=== PATIENT | male | born 1970 | race Caucasian/White ===

== ENCOUNTER 2021-06-19 17:19 | Emergency (ER) | payer SELFPAY ==
[~2021-06-19] VITALS: Ht 177.8 cm; Wt 113.4 kg
[2021-06-19] MEDS ORDERED: KETOROLAC 30 MG/ML VIAL IM STA (17:33)
[2021-06-19] MEDS ORDERED: morphine INJ 10 MG/ML 1ML (SYR OR VIAL) IM STA (17:33)
--- NOTE | 2021-06-19 17:44 | ED Upper Extremity ---
General Chief Complaint: Orthopedic Problems Stated Complaint: SHOULDER OUT OF PLACE Nursing Triage Note: PT AMB TO RM 8 WITH COMPLAINT OF RIGHT SHOULDER DISLOCATION. STATES FELL INTO WALL. Source: patient Exam Limitations: no limitations (DEENA VILLALPANDO MD) History of Present Illness Date Seen by Provider: June 19, 2021 Time Seen by Provider: 17:28 Initial Comments 50-year-old male with prior history of right shoulder dislocation coming in due to right shoulder pain after he slipped and fell and he feels like is dislocated. Having severe, constant, sharp pain in the right shoulder. Worse with movement better with not moving it. He has not had any meds as of yet. The first time this happened, he held onto a 5 pound weight for a while let it hang and it went back into place. He has not seen any physician for this in the past. He is otherwise denying any other acute complaints except he does endorse some new numbness to his right shoulder. (DEENA VILLALPANDO MD) Allergies and Home Medications Allergies Coded Allergies: No Known Drug Allergies (Unverified , 06/19/21) Patient Home Medication List Home Medication List Reviewed: Yes (DEENA VILLALPANDO MD) Review of Systems Constitutional: No fever EENTM: No blurred vision Respiratory: No cough Cardiovascular: no symptoms reported Gastrointestinal: no symptoms reported Genitourinary: no symptoms reported Musculoskeletal: joint pain Skin: no symptoms reported Psychiatric/Neurological: Numbness (DEENA VILLALPANDO MD) All Other Systems Reviewed Negative Unless Noted: Yes (DEENA VILLALPANDO MD) Past Gghcacx-Iwhdwd-Xrjwdf Hx Patient Social History Tobacco Use?: Yes Smoking Status: Current Everyday Smoker Use of E-Cig and/or Vaping dev: No Substance use?: No Alcohol Use?: No Pt feels they are or have been: No (DEENA VILLALPANDO MD) Past Medical History Surgeries: No (DEENA VILLALPANDO MD) Physical Exam Vital Signs Vital Signs - First Documented 06/19/21 17:25 Pulse 99 Resp 16 B/P (MAP) 145/94 (111) Pulse Ox 96 O2 Delivery Room Air (ILDA HELM MD) Vital Signs Capillary Refill : Less Than 3 Seconds (DEENA VILLALPANDO MD) Height, Weight, BMI Height: '" Weight: lbs. oz. kg; 35.00 BMI Method: General Appearance: WD/WN, moderate distress HEENT: PERRL/EOMI, normal ENT inspection, pharynx normal Neck: non-tender, full range of motion, supple, normal inspection Cardiovascular: regular rate, rhythm, no edema, no murmur Respiratory: chest non-tender, lungs clear, normal breath sounds, no respiratory distress, no accessory muscle use Gastrointestinal: normal bowel sounds, non tender, soft; No distended, No guarding, No rebound Back: normal inspection, no CVA tenderness, no vertebral tenderness Shoulder: pain (Right shoulder pain that does appear to be dislocated, axillary nerve appears to be damaged with decrease in sensation over his deltoid, normal distal pulses, he can fire his radial, ulnar, median nerves with normal motor exam of the hand), soft tissue tenderness Elbow/Forearm: normal inspection, non-tender, no evidence of injury, normal ROM Wrist: Yes normal inspection, Yes non-tender, Yes no evidence of injury, Yes normal ROM Hand: normal inspection, non-tender, no evidence of injury, normal ROM (DEENA VILLALPANDO MD) Procedures/Interventions Splinting and Joint Reduction : Pre-Proc Neuro Vasc Exam: abnormal Post-Proc Neuro Vasc Exam: normal Joint Reduction Site: shoulder (R) Reduction Attempts: 2 Pre-Procedure NV Exam: Yes post joint reduction film: joint reduced Progress Joint was reduced after an intra articular lidocaine injection and IM Toradol. Traction countertraction was utilized with success. Pain improved after. Initially he had no sensation over his right deltoid, and afterwards he had normal sensation. Normal vascular exam before and after. Arm Sling: Medium (DEENA VILLALPANDO MD) Progress/Results/Core Measures Results/Orders Vital Signs/I&O 06/19/21 17:25 Pulse 99 Resp 16 B/P (MAP) 145/94 (111) Pulse Ox 96 O2 Delivery Room Air (ILDA HELM MD) Blood Pressure Mean: 111 Progress Progress Note : Progress Note 50-year-old male with above history coming in due to likely shoulder dislocation. ABCs were intact and vitals were stable on presentation. Physical exam with above findings. He does appear to have some axillary nerve damage given some numbness in his deltoid region. I did a joint injection with lidocaine to help with pain. X-ray then ordered. Consistent with anterior dislocation. It was put back in with traction countertraction. Repeat x-ray ordered. Will be signed out to the oncoming physician pending the repeat x-ray. He was placed in a sling. (DEENA VILLALPANDO MD) Diagnostic Imaging Diagonstic Imaging: Xray Comments NAME: JUAN LUIS [facility]AREZ [facility] REC#: [id number] PT STATUS: REG ER : 1970 PHYSICIAN: DEENA VILLALPANDO MD ADMIT DATE: 06/19/21/ER Signed Date of Exam:06/19/21 SHOULDER, RIGHT, 3 VIEWS EXAMINATION: Right shoulder radiographs, 3 views. COMPARISON: None. HISTORY: 50-year-old male, postreduction of right glenohumeral dislocation. FINDINGS: The humeral head is normally positioned relative to the glenoid. The acromioclavicular joint is normally aligned. The glenohumeral joint space is well maintained. There is no radiographically visible fracture. IMPRESSION: 1. The humeral head is not currently dislocated. 2. No radiographically visible fracture. Dictated by: Dictated on workstation # [id number] Dict: 06/19/21 183 Trans: 06/19/[address] [facility] [id number] Interpreted by: DIPIKA WATSON MD Electronically signed by: DIPIKA WATSON MD 06/19/21 184 (ILDA HELM MD) Departure Impression Primary Impression: Shoulder dislocation Qualified Codes: S43.004A - Unspecified dislocation of right shoulder joint, initial encounter Disposition: 01 HOME, SELF-CARE Condition: Improved Departure-Patient Inst. Decision time for Depature: 18:44 (ILDA HELM MD) Referrals: SHERITA DAVIS MD Patient Instructions: Shoulder Dislocation Add. Discharge Instructions: Please keep the sling on until you follow up with Dr Davis. You can place ice packs to the right shoulder for discomfort and take over the counter ibuprofen 600mg (3 pills) with food every 6 hours as needed for pain. Return to the Emergency Department for any new, concerning or emergent complaints,. Please call and follow up with Dr Davis, whose contact information is on this sheet. Thank you for letting us take care of you today. DEENA VILLALPANDO MD June 19, 2021 17:44 ILDA HELM MD June 19, 2021 18:46
[2021-06-19] MEDS ORDERED: LIDOCAINE 2% 20 ML (XYLOCAINE) VIAL INJ ONE (17:45)
--- NOTE | 2021-06-19 18:13 | Diagnostic Imaging Report ---
EXAMINATION: Right shoulder radiographs, single view. COMPARISON: None. HISTORY: 50-year-old male, right shoulder dislocation after injury. FINDINGS: The humeral head projects abnormally medially and inferiorly relative to the glenoid. This is the most common appearance on a frontal view radiograph for an anterior glenohumeral dislocation. Recommend correlation with clinical exam for direction of dislocation. There are limitations to the exam given the single view obtained. There is no radiographically visible fracture. The acromioclavicular joint appears intact. IMPRESSION: 1. The humeral head is dislocated, most likely anteriorly. Recommend correlation. 2. No radiographically apparent fracture. Dictated by: Dictated on workstation # [id number]
--- NOTE | 2021-06-19 18:41 | Diagnostic Imaging Report ---
EXAMINATION: Right shoulder radiographs, 3 views. COMPARISON: None. HISTORY: 50-year-old male, postreduction of right glenohumeral dislocation. FINDINGS: The humeral head is normally positioned relative to the glenoid. The acromioclavicular joint is normally aligned. The glenohumeral joint space is well maintained. There is no radiographically visible fracture. IMPRESSION: 1. The humeral head is not currently dislocated. 2. No radiographically visible fracture. Dictated by: Dictated on workstation # [id number]
[2021-06-19 18:52] VITALS: BP 145/94
== END 2021-06-19 18:52 | disposition home or self-care (01) ==
LOC: EDUNIT# 17:19 → ER 17:22
DX: S43.004A Unspecified dislocation of right shoulder joint, initial encounter (principal); F17.210 Nicotine dependence, cigarettes, uncomplicated; W01.198A Fall on same level from slipping, tripping and stumbling with subsequent striking against other object, initial encounter
CPT/HCPCS: 73020; 73030; 99282; A4565